=== PATIENT | female | born 1995 | race Two or more races ===

== ENCOUNTER 2018-12-26 13:50 | Emergency (ER) | payer BC ==
[2018-12-26 14:00] VITALS: BP 140/72
[2018-12-26] MEDS ORDERED: HYDROCODONE/ACETAMINOPHEN 5-325 MG TABLET PO ONE (14:39)
[2018-12-26] MEDS ORDERED: CYCLOBENZAPRINE HCL 10 MG TABLET PO ONE (14:40)
--- NOTE | 2018-12-26 14:43 | ER Document Report ---
ED Medical Screen (RME) - General Chief Complaint: Back Injury Stated Complaint: BACK PAIN Time Seen by Provider: 12/26/18 14:29 Mode of Arrival: Ambulatory Information source: Patient Notes: 23-year-old female presents emergency department with complaints of lower back pain. 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 She thinks this has exacerbated her lower back. She describes a sharp and stabbing sensation that shoots down her right lower extremity. She states that she is having right lower extremity weakness. She denies any bowel or bladder incontinence. Patient states that she is having difficulty ambulating secondary to the pain and weakness. Patient denies any nausea, vomiting, dysuria, hematuria, increased urgency, increased frequency. Her last menstrual period was 2 weeks ago. I have greeted and performed a rapid initial assessment of this patient. A comprehensive ED assessment and evaluation of the patient, analysis of test results and completion of the medical decision making process will be conducted by additional ED providers. PHYSICAL EXAMINATION: GENERAL: Well-appearing, well-nourished and in no acute distress. HEAD: Atraumatic, normocephalic. EYES: Pupils equal round extraocular movements intact, conjunctiva are normal. ENT: Nares patent NECK: Normal range of motion LUNGS: No respiratory distress TRAVEL OUTSIDE OF THE [place] IN LAST 30 DAYS: No - Related Data Allergies/Adverse Reactions: No Known Allergies Allergy (Unverified 12/26/18 13:52) Past Medical History - Social History Frequency of alcohol use: Occasional Drug Abuse: None Renal/ Medical History: Denies: Hx Peritoneal Dialysis Physical Exam - Vital signs Vitals: Temp Pulse Resp BP Pulse Ox 99.0 F 89 18 140/72 H 99 12/26/18 13:59 12/26/18 13:59 12/26/18 13:59 12/26/18 13:59 12/26/18 13:59 Course - Vital Signs Vital signs: Temp Pulse Resp BP Pulse Ox 99.0 F 89 18 140/72 H 99 12/26/18 13:59 12/26/18 13:59 12/26/18 13:59 12/26/18 13:59 12/26/18 13:59
--- NOTE | 2018-12-26 15:41 | RADIOLOGY REPORT (SQ) ---
EXAM DESCRIPTION: L SPINE WHOLE COMPLETED DATE/TIME: 12/26/2018 3:30 pm REASON FOR STUDY: lumbar pain COMPARISON: None. NUMBER OF VIEWS: Five views including obliques. TECHNIQUE: AP, lateral, oblique, and sacral radiographic images acquired of the lumbar spine. LIMITATIONS: None. FINDINGS: MINERALIZATION: Normal. SEGMENTATION: Normal. No transitional anatomy. ALIGNMENT: Normal. VERTEBRAE: Maintained height. No fracture or worrisome bone lesion. DISCS: Preserved height. No significant osteophytes or end plate irregularity. POSTERIOR ELEMENTS: Pedicles and facets are intact. No pars defect or posterior arch defects. HARDWARE: None in the spine. PARASPINAL SOFT TISSUES: Normal. PELVIS: Intact as visualized. No fractures or worrisome bone lesions. SI joints intact. OTHER: No other significant finding. IMPRESSION: NORMAL 5 VIEW LUMBAR SPINE. TECHNICAL DOCUMENTATION: JOB ID: [id number] [employer]- All Rights Reserved Reading location - IP/workstation name: [email or web address]
[2018-12-26 15:52] LABS: APPEARANCE,URINE CLEAR; BILIRUBIN,URINE NEGATIVE (NEGATIVE); COLOR,URINE YELLOW; GLUCOSE, URINE NEGATIVE (NEGATIVE); KETONES,URINE NEGATIVE (NEGATIVE); LEUKOCYTE ESTERASE,URINE MODERATE (NEGATIVE); NITRITE,URINE NEGATIVE (NEGATIVE); PROTEIN,URINE NEGATIVE (NEGATIVE); URINE SPECIFIC GRAVITY 1.017; UROBILINOGEN,URINE NEGATIVE mg/dL (<2.0)
[2018-12-26] MEDS ORDERED: KETOROLAC TROMETHAMINE 60 MG/2 ML SDV IM ONE (19:53)
[2018-12-26] MEDS ORDERED: LIDOCAINE 5% (700 MG) TRANSDERMAL ADH..PATCH TP ONE (19:53)
[2018-12-26] MEDS ORDERED: MORPHINE SULFATE 10 MG/ML INJ IM ONE (19:53)
[2018-12-26] MEDS ORDERED: PREDNISONE 20 MG TABLET PO ONE (19:54)
--- NOTE | 2018-12-26 19:56 | ER Document Report ---
ED General - General Chief Complaint: Back Injury Stated Complaint: BACK PAIN Time Seen by Provider: 12/26/18 14:29 Mode of Arrival: Ambulatory Information source: Patient, Friend, [facility] Records Notes: 23-year-old female presents emergency department with complaints of lower back pain. 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 She thinks this has exacerbated her lower back. She describes a sharp and stabbing sensation that shoots down her right lower extremity. She denies urinary retention, fecal incontinence, saddle anesthesia, history of IV drug use, fever. Patient states that she is having difficulty ambulating secondary to the pain and weakness. Patient denies any fever, chills nausea, vomiting, dysuria, hematuria, increased urgency, increased frequency. Her last menstrual period was 2 weeks ago. Patient reports prior similar symptoms. TRAVEL OUTSIDE OF THE [place] IN LAST 30 DAYS: No - HPI Onset: Last week Onset/Duration: Gradual, Persistent, Worse Quality of pain: Achy, Burning, Throbbing Severity: Moderate Pain Level: 2 Associated symptoms: Sweating. denies: Body/muscle aches, Chest pain, Diarrhea, Fever, Nausea, Vomiting, Weakness Exacerbated by: Movement, Walking Relieved by: Denies Similar symptoms previously: Yes Recently seen / treated by doctor: No - Related Data Allergies/Adverse Reactions: No Known Allergies Allergy (Unverified 12/26/18 13:52) Past Medical History - General Information source: Patient - Social History Smoking Status: Never Smoker Frequency of alcohol use: Occasional Drug Abuse: None Lives with: Spouse/Significant other Family History: Reviewed & Not Pertinent Patient has suicidal ideation: No Patient has homicidal ideation: No - Medical History Medical History: Negative Renal/ Medical History: Denies: Hx Peritoneal Dialysis Review of Systems - Review of Systems Notes: REVIEW OF SYSTEMS: CONSTITUTIONAL : Denies fever, chills, or sweats. Denies recent illness. Denies weight loss, recent hospitalizations. EENT: Denies visual changes, eye pain. Denies sore throat, oral lesions, difficulty swallowing. CARDIOVASCULAR: Denies chest pain. Denies palpitations. Denies lower extremity edema. RESPIRATORY: Denies cough. Denies shortness of breath, wheezing. GASTROINTESTINAL: Denies abdominal pain or distention. Denies nausea, vomiting, or diarrhea. Denies blood in vomitus, stools, or per rectum. Denies black, tarry stools. Denies constipation. GENITOURINARY: Denies difficulty urinating, painful urination, frequency, blood in urine, or vaginal discharge. MUSCULOSKELETAL: Denies neck pain or stiffness. Denies joint pain or swelling. SKIN: Denies rash, lesions or sores. HEMATOLOGIC : Denies easy bruising or bleeding. LYMPHATIC: Denies swollen glands. NEUROLOGICAL: Denies confusion or altered mental status. Denies loss of consciousness. Denies dizziness or lightheadedness. Denies headache. Denies weakness or paralysis. Denies slurred speech. Denies sensory loss, numbness, or tingling. Denies seizures. PSYCHIATRIC: Denies anxiety or stress. Denies depression, suicidal ideation, or homicidal ideation. Denies visual or auditory hallucinations. Physical Exam - Vital signs Vitals: Temp Pulse Resp BP Pulse Ox 99.0 F 89 18 140/72 H 99 12/26/18 13:59 12/26/18 13:59 12/26/18 13:59 12/26/18 13:59 12/26/18 13:59 - Notes Notes: PHYSICAL EXAMINATION: GENERAL: Well-appearing, well-nourished and in no acute distress. HEAD: Atraumatic, normocephalic. EYES: Pupils equal round and reactive to light, extraocular movements intact, conjunctiva are normal. ENT: Nares patent, oropharynx clear without exudates. Moist mucous membranes. NECK: Normal range of motion, supple without lymphadenopathy LUNGS: Breath sounds clear to auscultation bilaterally and equal. No wheezes rales or rhonchi. HEART: Regular rate and rhythm without murmurs ABDOMEN: Soft, nontender, nondistended abdomen. No guarding, no rebound. No m asses appreciated. Female : deferred Musculoskeletal: Normal range of motion, no pitting or edema. No cyanosis. Tenderness with palpation to the right paraspinal musculature of the lumbar spine. Right sciatic notch tender to palpation. Straight leg raise negative bilaterally. 5/5 dorsi and plantar flexion. Sensation intact. NEUROLOGICAL:Mental status; alert and oriented x3. Cranial nerves II through XII intact. Sensation intact to sharp/dull differentiation in all extremities. Motor; normal tone. No abnormal movements appreciated. No pronator drift. Strength tested and 5/5 in bilateral wrist flexion/extension, elbow flexion/extension, shoulder abduction, straight leg raise, knee flexion/extension, ankle dorsiflexion/plantar flexion. Patient ambulates with a limp. Coordination; no ataxia. Finger to nose and heel to pichardo testing intact bilaterally. Reflexes; brachial radialis, biceps, and patellar reflexes within normal limits and symmetric bilaterally. Babinski with downgoing toes bilaterally. PSYCH: Normal mood, normal affect. SKIN: Warm, Dry, normal turgor, no rashes or lesions noted. Course - Re-evaluation Re-evalutation: 12/26/18 19:56 Laboratory 12/26/18 15:13 Urine Color YELLOW Urine Appearance CLEAR Urine pH 7.0 Ur Specific [place] 1.017 Urine Protein NEGATIVE Urine Glucose (UA) NEGATIVE Urine Ketones NEGATIVE Urine Blood NEGATIVE Urine Nitrite NEGATIVE Urine Bilirubin NEGATIVE Urine Urobilinogen NEGATIVE Ur Leukocyte Esterase MODERATE H Urine WBC (Auto) 9 Urine RBC (Auto) 3 Urine Bacteria (Auto) TRACE Squamous Epi Cells Auto 1 Urine Mucus (Auto) RARE Urine Ascorbic Acid NEGATIVE Urine HCG, Qual NEGATIVE Lumbar Spine X-Ray 12/26/18 14:38 IMPRESSION: NORMAL 5 VIEW LUMBAR SPINE. Temp Pulse Resp BP Pulse Ox 99.0 F 89 18 140/72 H 99 12/26/18 13:59 12/26/18 13:59 12/26/18 13:59 12/26/18 13:59 12/26/18 13:59 23-year-old female presents with low back pain that radiates to her right leg. 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 Vital signs reviewed and within normal limits. Patient is afebrile, normotensive and not hypoxic. Patient has a normal neurologic exam. She does have pain with mov ement, palpation to the paraspinal musculature and sciatic notch on the right side. Patient has no midline tenderness, erythema, red flag signs including fever, saddle anesthesia, fecal incontinence, urinary retention, history of IV drug abuse. Patient has equal strength in the lower extremities bilaterally. X-ray of the lumbar spine was obtained and normal. Urinalysis shows moderate leuk esterase but only 9 WBCs. Will send for culture as patient has no urinary symptoms. Patient did receive [place] and Valium prior to my exam and does report improvement in pain initially but it has returned. Patient received IM morphine, Toradol and a lidocaine patch. I have low suspicion for epidural abscess, cauda equina, urolithiasis. patient was evaluated and treated as appropriate for the patient's presenting symptoms and complaint, with consideration of any critical or life threatening conditions that may be associated with their obtained history and exam as noted above. All results were discussed with patient. Patient provided the opportunity to ask questions, and express concerns. Patient was educated on treatments based on their presumed diagnosis as noted above. At this time we will discharge the patient with return precautions and follow-up recommendations. Verbal discharge instructions given a the bedside. Medication warnings reviewed. Patient is in agreement with this plan and has verbalized understanding of return precautions. After careful consideration I feel that that patient can be safely discharged from the emergency department, they were advised to followup with a primary care physician in 2-3 days. Dictation on this chart was performed using voice recognition software and may result in unintended grammatical, spelling, syntax or errors. 12/26/18 21:43 - Vital Signs Vital signs: Temp Pulse Resp BP Pulse Ox 99.0 F 89 18 140/72 H 99 12/26/18 13:59 12/26/18 13:59 12/26/18 13:59 12/26/18 13:59 12/26/18 13:59 - Laboratory Laboratory results interpreted by me: 12/26/18 15:13 Ur Leukocyte Esterase MODERATE H - Diagnostic Test Radiology reviewed: Image reviewed, Reports reviewed Discharge - Discharge Clinical Impression: Elevated blood pressure reading Low back pain Qualifiers: Chronicity: acute Back pain laterality: right Sciatica presence: with sciatica Sciatica laterality: sciatica of right side Qualified Code(s): M54.41 - Lumbago with sciatica, right side Condition: Good Disposition: HOME, SELF-CARE Instructions: Ice Packs ([facility]), Low Back Pain ([facility]), Muscle Strain ([facility]), Pain Medication Injection ([facility]) Additional Instructions: You have been seen in the Emergency Department (ED) today for back pain. Your workup and exam have not shown any acute abnormalities and you are likely suffering from muscle strain or possible problems with your discs, but there is no treatment that will fix your symptoms at this time. Please take the naproxen that has been prescribed as directed. You should also purchase a local lidocaine cream such as "aspercreme with lidocaine" and use per bottle instructions to the affected area. Apply heat to the area as often as you are able. Continue to keep active and avoid prolonged periods of bed rest. Please follow up with your doctor as soon as possible regarding today's ED visit and your back pain. Return to the ED for worsening back pain, fever, weakness or numbness of either leg, or if you develop either (1) an inability to urinate or have bowel movements, or (2) loss of your ability to control your bathroom functions (if you start having "accidents"), or if you develop other new symptoms that concern you.concern you. Prescriptions: Naproxen [Naprosyn] 500 mg PO Q12H PRN #20 tablet PRN Reason: For Pain Prednisone [Deltasone 20 mg Tablet] 2 tab PO DAILY 5 Days #10 tablet Forms: Elevated Blood Pressure, Return to School, Return to Work
== END 2018-12-26 21:04 | disposition home or self-care (01) ==
LOC: ER 13:50
DX: M54.41 Lumbago with sciatica, right side (principal); R61 Generalized hyperhidrosis; R03.0 Elevated blood-pressure reading, without diagnosis of hypertension
CPT/HCPCS: 99283; 96372; 87086; 81025; 87088; 81001; 87186; 72110; J1885; J2270; J7512; 36415

== ENCOUNTER 2019-04-28 11:58 | Emergency (ER) | payer BC ==
[2019-04-28] MEDS ORDERED: LIDOCAINE 5% (700 MG) TRANSDERMAL ADH..PATCH TP ONE (12:59)
[2019-04-28] MEDS ORDERED: KETOROLAC TROMETHAMINE 60 MG/2 ML SDV IM ONE (12:59)
[2019-04-28] MEDS ORDERED: CYCLOBENZAPRINE HCL 10 MG TABLET PO ONE (12:59)
--- NOTE | 2019-04-28 13:04 | ER Document Report ---
HPI - HPI Patient complains to provider of: Right back pain Time Seen by Provider: 04/28/19 12:36 Pain Level: 4 Context: Patient is an otherwise healthy 23-year-old female presents to the emergency department for right lower back pain radiating into her right lower extremity "all the way to my ankle." Patient was seen at this facility on 12/26/2018 for same pain. 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 Patient states she no longer does that job but has continued pain. Patient states the pain has been intermittent but for the last couple of days has gotten "so bad." Patient's denying any recent injuries, change in the pain, trauma to her back or lower extremity, urinary retention, loss of bowel or bladder, IV drug use, fevers. - CONSTITUTIONAL Constitutional: DENIES: Fever, Chills - NEURO Neurology: DENIES: Headache, Weakness, Vision blurred, Dizzinesss / Vertigo - REPRODUCTIVE Reproductive: DENIES: : Past Medical History - General Information source: Patient - Social History Smoking Status: Never Smoker Chew tobacco use (# tins/day): No Frequency of alcohol use: None Drug Abuse: None Family History: Reviewed & Not Pertinent Patient has suicidal ideation: No Patient has homicidal ideation: No Renal/ Medical History: Denies: Hx Peritoneal Dialysis Vertical Provider Document - CONSTITUTIONAL Agree With Documented VS: Yes Notes: GENERAL: Alert, interacts well. No acute distress. HEAD: Normocephalic, atraumatic. EYES: Pupils equal, round, and reactive to light. Extraocular movements intact. ENT: Oral mucosa moist, tongue midline. NECK: Full range of motion. Supple. Trachea midline. LUNGS: Clear to auscultation bilaterally, no wheezes, rales, or rhonchi. No re spiratory distress. HEART: Regular rate and rhythm. No murmur ABDOMEN: Soft, non-tender. Non-distended. Bowel sounds present in all 4 quadrants. EXTREMITIES: Moves all 4 extremities spontaneously. No edema, normal radial and dorsalis pedis pulses bilaterally. No cyanosis. 5 out of 5 strength all 4 extremities. BACK: no cervical, thoracic, lumbar midline tenderness. No saddle anesthesia, normal distal neurovascular exam. Pain upon palpation right paraspinal region radiating into right buttocks. No obvious trauma or injury noted. NEUROLOGICAL: Alert and oriented x3. Normal speech. cranial nerves II through XII grossly intact PSYCH: Normal affect, normal mood. SKIN: Warm, dry, normal turgor. No rashes or lesions noted. - INFECTION CONTROL TRAVEL OUTSIDE OF THE [place] IN LAST 30 DAYS: No Course - Re-evaluation Re-evalutation: 04/28/19 13:01 Patient states there is no chance she is . She is wishing to decline a test in the emergency room. I discussed the use of Toradol and how it is not safe in . Patient states she is not . I have reviewed charts from patient's visit at 12/26/2018. It does appear the patient had a lumbar sacral spine x-ray performed that was negative. Presentation of a well appearing patient complaining of acute on chronic back pain. No rapid progression of symptoms, systemic symptoms including fevers, chills, weight loss, history of recent bacterial infection, bilateral symptoms, numbness, weakness, difficulty walking, urinary retention or bowel incontinence, personal history of cancer, immunosuppression, diabetes, known AAA, or history of IV drug use. Exam is without point tenderness over vertebral bodies, pu lsatile abdominal mass, and patient has symmetric and intact lower extremity strength, sensation, and reflexes without clonus. 2+ symmetric medial malleolar and dorsalis pedis pulses Based on history and physical, I have a very low suspicion of a concerning etiology of pain including epidural compression syndrome, spinal infection, transverse myelitis, malignancy, abdominal aortic aneurysm, renal colic, acute lower extremity claudication, neurogenic claudication, ankylosing spondylitis, or other intra-abdominal process. Due to absence of concerning risk factors in history and physical as well as absence of rapidly progressive, severe, or bilateral symptoms, will defer imaging at this point. At this time will discharge with return precautions and follow-up recommendations. Verbal discharge instructions given a the bedside and opportunity for questions given. Medication warnings reviewed. Patient is in agreement with this plan and has verbalized understanding of return precautions and the need for primary care follow-up in the next 24-72 hours. This medical record was dictated with voice recognizing software. There may be grammatical, syntax errors that are unintended. - Vital Signs Vital signs: Temp Pulse Resp BP Pulse Ox 98.1 F 100 22 H 145/85 H 99 04/28/19 12:04 04/28/19 12:04 04/28/19 12:04 04/28/19 12:04 04/28/19 12:04 Discharge - Discharge Clinical Impression: Lumbar back pain Sciatica Qualifiers: Laterality: right Qualified Code(s): M54.31 - Sciatica, right side Condition: Stable Disposition: HOME, SELF-CARE Instructions: Low Back Pain ([facility]), Warm Packs ([facility]), Muscle Strain ([facility]), Pain Medication Injection ([facility]), Sciatica ([facility]) Additional Instructions: You have been seen in the Emergency Department (ED) today for back pain. Your workup and exam have not shown any acute abnormalities and you are likely suffering from muscle strain or possible problems with your discs, but there is no treatment that will fix your symptoms at this time. Please take the naproxen that has been prescribed as directed. You should also purchase a local lidocaine cream such as "aspercreme with lidocaine" and use per bottle instructions to the affected area. Apply heat to the area as often as you are able. Continue to keep active and avoid prolonged periods of bed rest. Please follow up with your doctor as soon as possible regarding today's ED visit and your back pain. Return to the ED for worsening back pain, fever, weakness or numbness of either leg, or if you develop either (1) an inability to urinate or have bowel movements, or (2) loss of your ability to control your bathroom functions (if you start having "accidents"), or if you develop other new symptoms that concern you.concern you. Prescriptions: Cyclobenzaprine HCl [Flexeril 10 mg Tablet] 10 mg PO TIDP PRN #15 tab PRN Reason: Naproxen 500 mg PO BID #20 tablet Forms: Return to Work Referrals: DANIEL PACHECO DO [ACTIVE STAFF] - Follow up as needed
[2019-04-28 13:33] VITALS: BP 118/55
== END 2019-04-28 13:45 | disposition home or self-care (01) ==
LOC: ER 11:58
DX: M54.31 Sciatica, right side (principal)
CPT/HCPCS: 99283; 96372; J1885